=== PATIENT | female | born 1985 | race Asian ===

== ENCOUNTER 2017-07-27 00:32 | Inpatient (IN) | payer SELFPAY ==
[~2017-07-27] VITALS: Ht 165.1 cm; Wt 63.5 kg
[2017-07-27 00:50] VITALS: BP 106/67
[2017-07-27] MEDS ORDERED: LACTATED RINGERS 1,000 ML IV SCH (01:15)
[2017-07-27] MEDS ORDERED: PROMETHAZINE 25 MG/ML VIAL IVP PRN (01:15)
[2017-07-27] MEDS ORDERED: OXYTOCIN 10 UNITS/ML VIAL IM ONE (01:15)
[2017-07-27] MEDS ORDERED: OXYTOCIN 20 UNITS in LACTATED RINGERS 1,000 ML IV SCH (01:15)
[2017-07-27 01:38] LABS: WHITE BLOOD COUNT (AUTO) 8.7 K/uL (4.8-10.8)
[2017-07-27 01:41] LABS: APPEARANCE,URINE CLEAR (CLEAR); BILIRUBIN,URINE NEGATIVE (NEGATIVE); BLOOD, URINE NEGATIVE (NEGATIVE); COLOR,URINE YELLOW (YELLOW); LEUKOCYTE ESTERASE ,URINE NEGATIVE (NEGATIVE); NITRITE, URINE NEGATIVE (NEGATIVE); PH,URINE 6.5 (5.0-9.0); UGLUCOSE NEGATIVE (NEGATIVE)
[2017-07-27 01:43] LABS: HEMATOCRIT 39.4 % (36-48); HEMOGLOBIN 13.1 g/dL (12.0-16.0); MEAN CORPUSCULAR HEMOGLOBIN 32 pg (27-31); MEAN CORPUSCULAR HGB CONC 33 g/dL (33-37); MEAN CORPUSCULAR VOLUME 96 fL (80-94); PLATELET COUNT (AUTO) 178 K/uL (140-450); RED BLOOD CELL COUNT(AUTO) 4.11 MIL/uL (4.20-5.40); RED CELL DISTRIBUTION WIDTH 12.7 % (11.6-13.7)
[2017-07-27] MEDS ORDERED: OXYTOCIN 20 UNITS/LR PREMIX 1,000 ML IV ONE (01:48)
[2017-07-27] MEDS ORDERED: OXYTOCIN 10 UNITS/ML VIAL ONE ×2 (01:52→10:38)
[2017-07-27 02:13] LABS: EOSINOPHILS % (MANUAL) 1 % (0-4); LYMPHOCYTES % (MANUAL) 14 % (20-46); MONOCYTES % (MANUAL) 5 % (5-12)
[2017-07-27] MEDS ORDERED: BUPIVACAINE 0.125%/NS PREMIX 250 ML ONE (04:37)
[2017-07-27] MEDS ORDERED: BUPIVACAINE 0.125%/NS PREMIX 250 ML EPI SCH (05:00)
--- NOTE | 2017-07-27 06:30 | NUR ---
PATIENT HAS BEEN SCREENED AND CATEGORIZED LOW NUTRITION RISK. PATIENT WILL BE SEEN WITHIN 7 DAYS OF ADMISSION. 08/02/17 JACQUELIN FLANNERY MS, RDN
[2017-07-27] MEDS ORDERED: MEASLES, MUMPS, AND RUBELLA 1 VIAL SQVAC PRN (08:10)
[2017-07-27] MEDS ORDERED: BENZOCAINE/MENTHOL 20%-0.5% 60 GM CAN TP PRN (08:10)
[2017-07-27] MEDS ORDERED: oxyCODONE/APAP 5/325 MG 1 TAB TAB PO PRN (08:10)
[2017-07-27] MEDS ORDERED: TEMAZEPAM 15 MG CAP PO PRN (08:10)
[2017-07-27] MEDS ORDERED: OXYTOCIN 10 UNITS/ML VIAL IM PRN (08:10)
[2017-07-27] MEDS ORDERED: METHYLERGONOVINE 0.2 MG/ML AMP IM PRN (08:10)
[2017-07-27] MEDS: IBUPROFEN 800 MG TAB PO PRN (20:33)
[2017-07-27] MEDS ORDERED: DOCUSATE SOD/SENNA 50/8.6 MG 1 TAB PO SCH (21:00)
[2017-07-27] MEDS: HYDROcodone/APAP 5/325 MG 1 TAB TAB PO PRN (23:05)
[2017-07-28 06:47] LABS: HEMOGLOBIN 10.8 g/dL (12.0-16.0)
[2017-07-28] MEDS: CEPHALEXIN 500 MG CAP PO SCH ×2 (12:41→18:16)
[2017-07-28] MEDS: IBUPROFEN 800 MG TAB PO PRN (15:16)
[2017-07-28] MEDS: HYDROcodone/APAP 5/325 MG 1 TAB TAB PO PRN (21:56)
[2017-07-29] MEDS ORDERED: INFLUENZA VIRUS VACCINE QUAD 0.5 ML SYR IMVAC PRN (00:20)
[2017-07-29] MEDS: HYDROcodone/APAP 5/325 MG 1 TAB TAB PO PRN ×2 (05:41→12:14)
[2017-07-29] MEDS: CEPHALEXIN 500 MG CAP PO SCH ×3 (06:09→12:13)
[2017-07-29] MEDS ORDERED: IBUP-2218 PO (08:34)
[2017-07-29 09:56] LABS: RAPID PLASMA REAGIN NON-REACTIVE (Non Reactiv)
== END 2017-07-29 14:30 | disposition home or self-care (01) | DRG 775 ==
LOC: MLD 00:32 → MFCC 14:35
PROVIDERS: ADMIT Obstetrics & Gynecology; ATTEND Obstetrics & Gynecology
PROC: 10E0XZZ Delivery of Products of Conception, External Approach (ICD-10-PCS; principal; 2017-07-27)
PROC: 0KQM0ZZ Repair Perineum Muscle, Open Approach (ICD-10-PCS; 2017-07-27)
PROC: 10907ZC Drainage of Amniotic Fluid, Therapeutic from Products of Conception, Via Natural or Artificial Opening (ICD-10-PCS; 2017-07-27)
PROC: 3E033VJ Introduction of Other Hormone into Peripheral Vein, Percutaneous Approach (ICD-10-PCS; 2017-07-27)
PROC: 00HU33Z Insertion of Infusion Device into Spinal Canal, Percutaneous Approach (ICD-10-PCS; 2017-07-27)
PROC: 3E0R3BZ Introduction of Anesthetic Agent into Spinal Canal, Percutaneous Approach (ICD-10-PCS; 2017-07-27)
PROC: 3E0234Z Introduction of Serum, Toxoid and Vaccine into Muscle, Percutaneous Approach (ICD-10-PCS; 2017-07-29)
PROC: 3E0234Z Introduction of Serum, Toxoid and Vaccine into Muscle, Percutaneous Approach (ICD-10-PCS; 2017-07-29)
DX: O69.89X0 Labor and delivery complicated by other cord complications, not applicable or unspecified (principal); O70.1 Second degree perineal laceration during delivery; Z37.0 Single live birth; Z3A.40 40 weeks gestation of pregnancy; Z23 Encounter for immunization
CPT/HCPCS: 36415; 51702; 81003; 85018; 85025; 86592; 86886; 86900; 86901; 90658; 90715; J2590; J3490; J7120